=== PATIENT | male | born 1960 | race Caucasian/White ===

== ENCOUNTER 2022-02-05 00:49 | Emergency (ER) | payer OTHER ==
[2022-02-05 01:36] LABS: HEMOGLOBIN 14.5 gm/dl (14.0-17.5); RED BLOOD COUNT 4.84 M/UL (4.20-5.50); WHITE BLOOD COUNT 7.7 K/UL (4.5-11.0)
[2022-02-05 02:01] LABS: BUN/CREATININE RATIO 18 (0-10)
[2022-02-05] MEDS ORDERED: VALACYCLOVIR1000 MG PO (03:45)
[2022-02-05] MEDS ORDERED: DOXYCYCLINE MO100 MG PO (03:45)
[2022-02-06 21:12] LABS: CHLAMYDIA TRACHOMATIS, NAA Negative (Negative); NEISSERIA GONORRHOEAE, NAA Negative (Negative)
== END 2022-02-05 03:50 | disposition home or self-care (01) ==
LOC: ER1 00:49
PROVIDERS: Emergency Medicine
DX: R07.89 Other chest pain (principal); B02.9 Zoster without complications; I10 Essential (primary) hypertension
CPT/HCPCS: 80053; 82550; 82553; 84484; 85025; 93005; 96372; 99285; J0696

== ENCOUNTER 2022-03-24 02:32 | Emergency (ER) | payer OTHER ==
[~2022-03-24 02:32] MED LIST: DOXYCYCLINE MO100 MG PO; VALACYCLOVIR1000 MG PO
[2022-03-24 04:08] LABS: HEMOGLOBIN 12.9 gm/dl (14.0-17.5); RED BLOOD COUNT 4.26 M/UL (4.20-5.50); WHITE BLOOD COUNT 16.6 K/UL (4.5-11.0)
[2022-03-24 04:25] LABS: BUN/CREATININE RATIO 23 (0-10)
[2022-03-24] MEDS ORDERED: DELSYM30 MG/5 ML PO (05:27)
[2022-03-24] MEDS ORDERED: DOXYCYCLINE HY100 M2 PO (05:27)
== END 2022-03-24 06:03 | disposition home or self-care (01) ==
LOC: ER1 02:32
PROVIDERS: Physician Assistant Medical
DX: R41.0 Disorientation, unspecified (principal); J18.9 Pneumonia, unspecified organism; I10 Essential (primary) hypertension; F17.290 Nicotine dependence, other tobacco product, uncomplicated; Z88.5 Allergy status to narcotic agent
CPT/HCPCS: 70450; 71045; 80053; 82550; 82553; 84484; 85025; 99285